=== PATIENT | female | born 1940 | race Caucasian/White ===

== ENCOUNTER 2018-07-12 08:25 | Emergency (ER) | payer OTHER ==
[2018-07-12 08:35] VITALS: BP 113/76; PULSE 71; TEMP 98.4; BMI 25.0
--- NOTE | 2018-07-12 08:58 | PDOC ---
History of Present Illness - General Chief Complaint: Pain, Acute Stated Complaint: KNEE PAIN Time Seen by Provider: 07/12/18 08:47 History Source: Patient, Family (daughter) Exam Limitations: Clinical Condition - History of Present Illness Initial Comments: 07/12/18 08:55 Patient with history of hypertension controlled with meds present with complain of right knee pain of unknown etiology for 2 weeks. Denies trauma or injury to right knee. Denies any other symptoms Timing/Duration: other (2 weeks) Past History - Past Medical History Allergies/Adverse Reactions: Allergies Allergy/AdvReac Type Severity Reaction Status Date / Time No Known Allergies Allergy Verified 07/12/18 08:35 Home Medications: Ambulatory Orders Enalapril Maleate [Vasotec -] 20 mg PO DAILY 10/31/14 Nifedipine ER [Procardia XL -] 30 mg PO DAILY 10/31/14 Omeprazole [Prilosec] 40 mg PO DAILY #30 capsule. 10/31/14 Leg Brace [Knee Brace] 1 each MC DAILY #1 each 07/12/18 Naproxen 500 mg PO BID PRN #20 tablet. 07/12/18 HTN: Yes - Suicide/Smoking/Psychosocial Hx Smoking Status: No Smoking History: Never smoked Have you smoked in the past 12 months: No Number of Cigarettes Smoked Daily: 0 Information on smoking cessation initiated: No Hx Alcohol Use: No Drug/Substance Use Hx: No Substance Use Type: None Review of Systems - Review of Systems Able to Perform ROS?: Yes Is the patient limited American proficient: No Constitutional: No: Chills, Diaphoresis, Fever, Loss of Appetite, Malaise, Night Sweats, Weakness, Weight Stable, Unintentional Wgt. Loss, Unexplained wgt Loss, Other HEENTM: No: Eye Pain, Blurred Vision, Tearing, Recent change in vision, Double Vision, Cataracts, Ear Pain, Ocular Prothesis, Ear Discharge, Nose Pain, Nose Congestion, Tinnitus, Nose Bleeding, Hearing Loss, Throat Pain, Throat Swelling , Mouth Pain, Dental Problems, Difficulty Swallowing, Mouth Swelling, Other Respiratory: No: Cough, Orthopnea, Shortness of Breath, SOB with Exertion, SOB at Rest, Stridor, Wheezing, Productive cough, Hemoptysis, Other Cardiac (ROS): No: Chest Pain, Edema, Irregular Heart Rate, Lightheadedness, Palpitations, Syncope, Chest Tightness, Other ABD/GI: No: Abdominal Distended, Abd. Pain w/ defecation, Blood Streaked Bowels , Constipated, Diarrhea, Difficulty Swallowing, Nausea, Poor Appetite, Poor Fluid Intake, Rectal Bleeding, Vomiting, Indigestion, Abdominal cramping, Tarry Stools, Other Musculoskeletal: Yes: See HPI, Joint Pain (right knee), Muscle Pain (right knee) . No: Back Pain, Joint Swelling, Muscle Weakness, Joint Stiffness All Other Systems: Reviewed and Negative *Physical Exam - Vital Signs Last Vital Signs Temp Pulse Resp BP Pulse Ox 98.4 F 71 16 113/76 100 07/12/18 08:33 07/12/18 08:33 07/12/18 08:33 07/12/18 08:33 07/12/18 08:33 - Physical Exam Comments: 07/12/18 08:56 GENERAL: Well developed, well nourished. Awake and alert. No acute distress. HEENT: Normocephalic, atraumatic. PERRLA, EOMI. No conjunctival pallor. Sclera are non- icteric. Moist mucous membranes. Oropharynx is clear. NECK: Supple. Full ROM. No JVD. Carotid pulses 2+ and symmetric, without bruits. No thyromegaly. No lymphadenopathy. CARDIOVASCULAR: Regular rate and rhythm. No murmurs, rubs, or gallops. Distal pulses are 2+ and symmetric. PULMONARY: No evidence of respiratory distress. Lungs clear to auscultation bilaterally. No wheezing, rales or rhonchi. ABDOMINAL: Soft. Non-tender. Non-distended. No rebound or guarding. No organomegaly. Normoactive bowel sounds. MUSCULOSKELETAL : Moderate tenderness over medial collateral ligament of right knee. Negative anterior-posterior drawer tests of right knee.Normal range of motion at all joints. EXTREMITIES: No cyanosis. No clubbing. No edema. No calf tenderness. SKIN: Warm and dry. Normal capillary refill. No rashes. No jaundice. NEUROLOGICAL: Alert, awake, appropriate. Cranial nerves 2-12 intact. No deficits to light touch and temperature in face, upper extremities and lower extremities. No motor deficits in the in face, upper extremities and lower extremities. Normoreflexic in the upper and lower extremities. Normal speech. Toes are down- going bilaterally. Gait is normal without ataxia. PSYCHIATRIC: Cooperative. Good eye contact. Appropriate mood and affect. General Appearance: Yes: Nourished, Appropriately Dressed. No: Apparent Distress ED Treatment Course - RADIOLOGY Radiology Studies Ordered: Category Date Time Status KNEE 3 POS-RIGHT [RAD] Stat Radiology 07/12/18 08:54 Ordered Medical Decision Making - Medical Decision Making 07/12/18 08:57 Patient with history of hypertension controlled meds present with complain of 2 weeks history of right knee pain without trauma or injury. Exam shows moderate tenderness over medial collateral ligaments of right knee. X-ray of right knee ordered to rule out any acute pathology. Toradol 30 mg IM given for pain. Treat based on imaging results 07/12/18 09:53 X-ray of right knee shows no acute fracture. X-ray shows arthritis changes with mild swelling. Right knee wrapped with [place] bandage. Patient placed on anti- inflammatory with orthopedics follow-up *DC/Admit/Observation/Transfer Diagnosis at time of Disposition: Arthritis of knee, right Knee pain, right Qualifiers: Chronicity: acute Qualified Code(s): M25.561 - Pain in right knee - Discharge Dispostion Disposition: HOME Condition at time of disposition: Stable Decision to Admit order: No - Prescriptions Prescriptions: Leg Brace [Knee Brace] 1 each MC DAILY #1 each Naproxen 500 mg PO BID PRN #20 tablet.dr MOLINA Reason: knee pain - Referrals Referrals: Tonny Michaud [Primary Care Provider] - Chapin Calderon MD [Staff Physician] - - Patient Instructions Printed Discharge Instructions: Osteoarthritis Additional Instructions: Take prescribed medication as needed for pain. Wear prescribed knee brace until symptoms resolved. Follow-up with preferred orthopedics if symptoms are not improve in 5 days - Post Discharge Activity
[2018-07-12] MEDS ORDERED: KETOROLAC TROMETHAMINE 30 MG/1 ML VIAL IM ONE (09:04)
[2018-07-12] MEDS ORDERED: KETOROLAC TROMETHAMINE 30 MG/1 ML VIAL ONE (09:14)
== END 2018-07-12 09:59 | disposition home or self-care (01) ==
LOC: JERFT 08:25
DX: M13.861 Other specified arthritis, right knee (principal); I10 Essential (primary) hypertension
CPT/HCPCS: 73562-TC-RT-FY; 99281-25

== ENCOUNTER 2019-11-15 19:23 | Emergency (ER) | payer OTHER ==
[2019-11-15 19:49] VITALS: BP 124/69; PULSE 78; TEMP 98.6; BMI 24.7
--- NOTE | 2019-11-15 21:32 | PDOC ---
Documentation entered by Kathya Parker SCRIBE, acting as scribe for Nicole Licona MD. Nicole Licona MD: This documentation has been prepared by the salomóneKeith Joy, SCRIBE, under my direction and personally reviewed by me in its entirety. I confirm that the documentation accurately reflects all work, treatment, procedures, and medical decision making performed by me. History of Present Illness - General Chief Complaint: Cold Symptoms Stated Complaint: Cough History Source: Family - History of Present Illness Initial Comments: 11/15/19 21:26 The patient is a 79 year old chadian speaking female with significant past medical history of HTN who presents to the ED today with cough since yesterday. As per patients son, the patient woke up last night with a cough and felt subjective fever (temperature not measured) and chills. The patients son states that her cough was much worse and she felt more congested this afternoon. The son reports that it is a light green productive cough. The son states that the patient took x2 Advil last night with some relief. The patient has no hx of chest-colds or asthma and does not want a flu shot. The patient denies any body aches, denies chest pain, shortness of breath. Denies nausea, vomiting, or diarrhea. Denies any other symptoms. Allergies: NKA Social History: Non smoker. Past History - Past Medical History Allergies/Adverse Reactions: Allergies Allergy/AdvReac Type Severity Reaction Status Date / Time No Known Allergies Allergy Verified 11/15/19 19:36 Home Medications: Ambulatory Orders Enalapril Maleate [Vasotec -] 20 mg PO DAILY 10/31/14 Nifedipine ER [Procardia XL -] 30 mg PO DAILY 10/31/14 Omeprazole [Prilosec] 40 mg PO DAILY #30 capsule. 10/31/14 Leg Brace [Knee Brace] 1 each MC DAILY #1 each 07/12/18 Naproxen 500 mg PO BID PRN #20 tablet. 07/12/18 HTN: Yes - Psycho Social/Smoking Cessation Hx Smoking Status: No Smoking History: Never smoked Have you smoked in the past 12 months: No Number of Cigarettes Smoked Daily: 0 Hx Alcohol Use: No Drug/Substance Use Hx: No Substance Use Type: None Review of Systems - Review of Systems Able to Perform ROS?: Yes Comments:: 11/15/19 21:26 CONSTITUTIONAL: +subjective fever and chills, Absent: no fatigue EYES: Absent: visual changes ENT: Absent: ear pain, no sore throat CARDIOVASCULAR: Absent: chest pain, no palpitations RESPIRATORY: +productive cough Absent:no SOB GI: Absent: abdominal pain, no nausea, no vomiting, no constipation, no diarrhea GENITOURINARY: Absent: dysuria, no frequency, no hematuria MUSKULOSKELETAL: Absent: back pain, no arthralgia, no myalgia SKIN: Absent: rash NEURO: Absent: headache *Physical Exam - Vital Signs Last Vital Signs Temp Pulse Resp BP Pulse Ox 98.6 F 78 18 124/69 97 11/15/19 19:43 11/15/19 19:43 11/15/19 19:43 11/15/19 19:43 11/15/19 19:43 - Physical Exam 11/15/19 21:27 GENERAL: The patient is awake, alert, and fully oriented, in no acute distress. HEAD: Normal with no signs of trauma. EYES: Pupils equal, round and reactive to light, extraocular movements intact, sclera anicteric, conjunctiva clear with no pallor. ENT: Ears normal, nares patent, oropharynx clear without exudates. Moist mucous membranes. NECK: Normal range of motion, supple without lymphadenopathy, JVD, or masses. LUNGS: Breath sounds equal, clear to auscultation bilaterally. No wheeze/ crackles. HEART: Regular rate and rhythm, normal S1 and S2 without murmur or rub. ABDOMEN: Soft/nontender/nondistended. BS wnl. No guarding or rebound. No palpable masses. No hepatosplenomegaly. EXTREMITIES: Normal range of motion, no edema. No clubbing or cyanosis. No cords, erythema, or tenderness. NEUROLOGICAL: Cranial nerves II through XII grossly intact. Normal speech, normal gait. PSYCH: Normal mood, normal affect. SKIN: Warm, Dry, normal turgor, no rashes or lesions noted. Medical Decision Making - Medical Decision Making As noted above, 79-year-old woman (Icelandic-speaking; son is translator/interpreter) with a history of hypertension but no history of COPD/asthma or other chronic respiratory issues presents with a 1 day history of cough productive of scant sputum and subjective fever. Patient is a non-smoker and does not have frequent chest colds. She had no antecedent sore throat, runny nose, rash. According to the patient's son, patient has refused influenza immunization every year for many years. Exam as noted. Exam reveals no significant abnormalities; patient has excellent air movement bilaterally without abnormal lung sounds. She has no pharyngeal erythema and mucous membranes are well-hydrated. No other abnormality seen. Clinical presentation most consistent with acute bronchitis, viral origin. Patient advised to drink plenty of fluids and make sure that the air in her rooms are moisturized with vaporizer/humidifier. She can take [id number] cold remedies as needed but should avoid pseudoephedrine given her history of hypertension This patient is elderly and and was not immunized against influenza, nasopharyngeal swab taken for a rapid influenza test The patient should return to the emergency room room immediately if she has persistent high fever, persistent wheezing or shortness of breath. Otherwise, she should follow-up with her general medical doctor within the next 5 to 7 days 11/16/19 06:16 Addendum:Rapid Influenza A/Influenza B negative Discharge - Discharge Information Problems reviewed: Yes Clinical Impression/Diagnosis: Acute bronchitis Qualifiers: Bronchitis organism: unspecified organism Qualified Code(s): J20.9 - Acute bronchitis, unspecified Condition: Stable Disposition: HOME - Follow up/Referral - Patient Discharge Instructions Patient Printed Discharge Instructions: DI for Acute Bronchitis Additional Instructions: Rest; drink plenty of liquids Monitor your temperature for fever, especially if you have chills Consider using vaporizer, especially in room at night Return to ER if you have persistent high fever, difficulty breathing or wheezing Follow-up with your general doctor within the next 5 to 7 days Print Language: BULGARIAN - Post Discharge Activity
== END 2019-11-15 21:08 | disposition home or self-care (01) ==
LOC: FER 19:23
DX: J20.9 Acute bronchitis, unspecified (principal); I10 Essential (primary) hypertension
CPT/HCPCS: 87804; 99281-25